=== PATIENT | female | born 1965 | race Caucasian/White ===

== ENCOUNTER → 2017-06-09 | Outpatient (CLI) | payer BC ==
--- NOTE | 2017-06-09 07:28 | MR ---
EXAMINATION TYPE: MR brain wo con DATE OF EXAM: 06/09/2017 COMPARISON: NONE HISTORY: Headaches, family history of aneurysm CONTRAST: Performed utilizing 0 mL intravenous Gadavist gadolinium contrast. TECHNIQUE: Multiplanar, multiecho imaging on a 3.0 Madisyn magnet is performed through the brain. Stud y is performed within 24 hours of arrival to the hospital. The craniovertebral junction is normal. The pituitary is normal. Diffusion-weighted imaging is performed. No abnormal hyperintensity is present to suggest an acute i ntracranial infarct or acute ischemic change. No suspicious discrete abnormal signal areas are within the periventricular white matter. Pituitary s talk is midline. Anterior communicating artery is patent. Optic chiasm appears unremarkable Ventricles and sulci are appropriate for the patient age. Left vertebral artery appears dominant. Basilar artery is patent. Distal internal carotid arteries ar e patent. The left internal carotid artery may terminate in the left middle cerebral artery. The left anterior cerebral artery is poorly visualized and may be hypoplastic or absent. Middle cerebral gentry ry branches appear unremarkable. Consider MRA [place] of [place] for additional evaluation. Minimal mucosal thickening is within the right maxillary sinus. IMPRESSIONS: 1. No acute intracranial changes. 2. The left A1 segment appears hypoplastic or absent. No obvious aneurysm is identified. MRA l[place] o f [place] can be performed for closer evaluation for aneurysms.
== END | disposition home or self-care (01) ==
LOC: RADMRIMAIN 06:07
PROVIDERS: ATTEND Family Medicine
DX: G44.85 Primary stabbing headache (principal)
CPT/HCPCS: 70551

== ENCOUNTER → 2020-05-22 | Outpatient (CLI) | payer BC ==
--- NOTE | 2020-05-22 19:50 | MR ---
"EXAMINATION TYPE: MR angio head wo con DATE OF EXAM: 05/22/2020 COMPARISON: Prior MRI brain June 09, 2017 HISTORY: Myelopathy, family hx aneurysm TECHNIQUE: Time of flight images focusing on the [place] were performed without contrast.. 2-D and 3-D postprocessing imaging is performed on independent workstation. FINDINGS: There is hypoplastic or occluded distal right vertebral artery. Left vertebral artery fills basilar artery. Patent left posterior communicating artery continuing as left posterior cerebral art corey. Small caliber but patent right posterior communicating artery image 102. Hypoplastic sac and [place] left posterior cerebral artery from basilar artery. No aneurysm. Anterior circulation shows eccentric 5.6 mm aneurysm at level of anterior communicating artery with s uspected some intraluminal clot. There is hypoplastic left A1 segment with filling of the left A2 seg ment due to patent anterior communicating artery. 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 A dvise endovascular and/or neurosurgical referral. A Yellow level critical message alert has been initiated for Martinez Alvarez DO via the [employer] 36 0 | Critical Results System on 05/22/2020 7:48 PM. This message alert has been sent to Martinez Alvarez DO via the preferences provided by the clinician for the receipt of Radiology Critical Findings. Ak ssage ID [id number]."
--- NOTE | 2020-05-22 20:01 | MR ---
MRI CERVICAL SPINE: CLINICAL HISTORY: Headaches, neck pain, bilateral upper extremity weakness. History of surgery. TECHNIQUE: Multiplanar, multisequence imaging of the cervical spine is performed without IV contrast. COMPARISON: None. FINDINGS: Coronal images show levoconvex scoliosis centered in the upper thoracic spine. Sagittal jose antonio ges of the cervical spine show the craniocervical junction to appear within normal limits. The cervi harry and upper thoracic spinal cord is normal in caliber and signal. Artifact from anterior fusion thaddeus te C3-C4 level noted. The vertebral body and intravertebral disk heights are normal. The bone marrow signal intensity is within normal limits. Axial images show C2-C3 level show some left-sided uncovertebral facet degenerative changes with perh aps mild left-sided neural foraminal narrowing. Axial images at C3-C4 level show artifact from surgical change with left-sided uncovertebral facet de generative changes causing mild to moderate narrowing. Axial images at C4-C5 level show artifact from surgical change, there is more prominent left-sided un covertebral facet degenerative change causing moderate to severe left-sided neural foraminal narrowin g. Tiny central disc protrusion minimally effaces the anterior thecal sac. Axial images at C5-C6 level shows broad-based posterior disc protrusion effacing anterior thecal sac and causing moderate right lung with mild left-sided neural foraminal narrowing as are some uncoverte bral facet spurring present. Axial images at C6-C7 level and C7-T1 levels are within normal limits. IMPRESSION: Scoliosis and multilevel degenerative changes in the cervical spine as detailed above. Po stsurgical change C3-C4 level noted.
== END | disposition home or self-care (01) ==
LOC: RADMRIMAIN 18:54
PROVIDERS: ATTEND Psychiatry & Neurology Neurology
DX: M47.12 Other spondylosis with myelopathy, cervical region (principal); M41.82 Other forms of scoliosis, cervical region; I66.19 Occlusion and stenosis of unspecified anterior cerebral artery; Z82.3 Family history of stroke; Z82.49 Family history of ischemic heart disease and other diseases of the circulatory system; Z98.1 Arthrodesis status
CPT/HCPCS: 70544; 72141

== ENCOUNTER → 2021-07-17 | Outpatient (CLI) | payer BC ==
--- NOTE | 2021-07-17 23:00 | CT ---
EXAMINATION TYPE: CT heart w calcium score DATE OF EXAM: 07/17/2021 COMPARISON: None. HISTORY: Screening for cardiovascular disorder. 213.9 CT DLP: 67.2 mGycm Automated exposure control for dose reduction was used. CT CALCIUM SCORING Coronary calcium is a marker for plaque (fatty deposits) in a blood vessel or atherosclerosis (harden ing of the arteries). The presence and amount of calcium detected in a coronary artery by the CT sca n, indicates the presence and amount of atherosclerotic plaque. These calcium deposits appear years before the development of heart disease symptoms such as chest pain and shortness of breath. A calcium score is computed for each of the coronary arteries based upon the volume and density of th e calcium deposits. This can be referred to as your calcified plaque burden. It does not correspond directly to the percentage of narrowing in the artery but does correlate with the severity of the un derlying coronary atherosclerosis. PROCEDURE TECHNIQUE - Prospective Gating was used. Slice thickness: 3mm. Density threshold (HU): 130, Pixel threshold: 3, Algorithm: discrete. RESULTS Region: LM Calcium Score ([place]): 0 Region: RCA Calcium Score ([place]): 0 Region: LAD Calcium Score ([place]): 0 Region: CX Calcium Score ([place]): 0 Region: PDA Calcium Score ([place]): 0 Total: Calcium Score ([place]): 0 Partial visualization of bilateral breast implants incidentally noted. IMPRESSION: Calcium Score: 0 Implication: No identifiable plaque. Risk of Coronary Artery Disease: Very low, generally less than 5%. CALCIUM SCORE IMPLICATION RISK OF C ORONARY ARTERY DISEASE 0 No identifiable plaque Very low, generally less than 5% 1-10 Minimal identifiable plaque Very unlikely, less than 10% 11-100 Definite, at least mild atherosclerotic plaque Mild or m inimal coronary narrowings likely 101-400 Definite, at least moderate atherosclerotic plaque Mild coronary ar jayne disease highly likely, significant narrowing possible 401 or Higher Extensive atherosclerotic plaque High lik elihood of at least one significant coronary narrowing
== END | disposition home or self-care (01) ==
LOC: RADCTMAIN 14:13
PROVIDERS: ATTEND Family Medicine
DX: Z13.6 Encounter for screening for cardiovascular disorders (principal)
CPT/HCPCS: 75571

== ENCOUNTER 2024-07-22 13:35 | Emergency (ER) | payer SELFPAY ==
[2024-07-22 13:54] VITALS: BP 108/68; PULSE 78; RESP 16; TEMP 97.6
--- NOTE | 2024-07-22 15:33 | ED ---
General Adult HPI - General Chief complaint: Neuro Symptoms/Deficit Stated complaint: Weakness Time Seen by Provider: 07/22/24 15:19 Source: patient Mode of arrival: ambulatory Limitations: no limitations - History of Present Illness Initial comments: Patient is a 59 y/o female presenting for syncopal episodes. Hx limited as patient unwilling to provide much hx beyond 3 recent syncopal episodes, sent in by her PCP. Patient frustrated as she has spent ~ 1.5 hours waiting to see a provider so would like to be discharged. - Related Data Home Medications Medication Instructions Recorded Confirmed Cyclobenzaprine [Flexeril] 10 mg PO HS MDD pain 03/27/16 03/29/16 Levothyroxine Sodium [Synthroid] 50 mcg PO DAILY 03/27/16 03/29/16 Allergies Allergy/AdvReac Type Severity Reaction Status Date / Time No Known Allergies Allergy Verified 03/29/16 11:56 Review of Systems ROS Statement: Those systems with pertinent positive or pertinent negative responses have been documented in the HPI. Limitations: ROS unobtainable due to patients medical condition (pt refused to provide further hx) Past Medical History Past Medical History: GERD/Reflux, Thyroid Disorder Additional Past Medical History / Comment(s): migraines, History of Any Multi-Drug Resistant Organisms: None Reported Past Surgical History: Breast Surgery, Orthopedic Surgery, Tubal Ligation Additional Past Surgical History / Comment(s): neck fusion, breast augmentation Past Anesthesia/Blood Transfusion Reactions: Motion Sickness Past Psychological History: No Psychological Hx Reported Past Alcohol Use History: Occasional Past Drug Use History: None Reported - Past Family History Mother Family Medical History: No Reported History Brother(s) Additional Family Medical History / Comment(s): aortic aneurysm General Exam - General Exam Comments Initial Comments: Visual Physical Exam Vital signs reviewed General: Well-appearing, nontoxic, no acute distress. Head: Normocephalic, atraumatic Eyes: PERRLA, EOMI ENT: Airway patent Chest: Nonlabored breathing Skin: No visual rash, normal skin tone Neuro: Alert and oriented 3 Musculoskeletal: No gross abnormalities Limitations: no limitations Course Vital Signs 07/22/24 07/22/24 13:52 15:24 Temperature 97.6 F Pulse Rate 78 Respiratory 16 16 Rate Blood Pressure 108/68 O2 Sat by Pulse 98 Oximetry EKG Findings - EKG Comments: EKG Findings:: EKG interpretation, sinus rhythm, rate 71 bpm, WV interval 125 ms, QRS duration 92 ms, QT/QTc 387/409 ms, normal axis, no ST elevations or depressions, no delta waves, no Brugada pattern no arrhythmia Medical Decision Making - Medical Decision Making Was pt. sent in by a medical professional or institution (, PA, CREDIT INTERVIEWER, urgent care, hospital, or senior care...) When possible be specific @ -[No] Did you speak to anyone other than the patient for history (EMS, parent, family, police, friend...)? What history was obtained from this source @ -[No] Did you review nursing and triage notes (agree or disagree)? Why? @ -[I reviewed and agree with nursing and triage notes] Were old charts reviewed (outside hosp., previous admission, EMS record, old EKG, old radiological studies, urgent care reports/EKG's, senior care records)? Report findings @ -[No old charts were reviewed] Differential Diagnosis (chest pain, altered mental status, abdominal pain women, abdominal pain men, vaginal bleeding, weakness, fever, dyspnea, syncope, headache, dizziness, GI bleed, back pain, seizure, CVA, palpatations, mental health, musculoskeletal)? @Differential Syncope: Valvular disease, hypertrophic cardiomyopathy, pulmonary embolism, tamponade, tachycardia, bradycardia, PA, hypovolemia, hemorrhage, dissection, anemia, intracranial hemorrhage, seizure, hypoglycemia, carbon monoxide poisoning, this is not meant to be an all-inclusive list. EKG interpreted by me (3pts min.). EKG interpretation, sinus rhythm, rate 71 bpm, WV interval 125 ms, QRS duration 92 ms, QT/QTc 3 7/409 ms, normal axis, no ST elevations or depressions, no delta waves, no Brugada pattern no arrhythmiarays interpreted by me (1pt min.). @ -[None done] CT interpreted by me (1pt min.). @ -[None done] U/S interpreted by me (1pt. min.). @ -[None done] What testing was considered but not performed or refused? (CT, X-rays, U/S, labs)? Why? Considered chest x-ray, orthostatic vital signs, comprehensive labs however patient requested discharge What meds were considered but not given or refused? Why? @ -[None] Did you discuss the management of the patient with other professionals (professionals i.e. , PA, CREDIT INTERVIEWER, lab, RT, psych nurse, social contact worker, educational speech language clinician, te acher, grant officer, adult protective caseworker)? Give summary @ -[No] Was smoking cessation discussed for >3mins.? @ -[No] Was critical care preformed (if so, how long)? @ -[No] Were there social determinants of health that impacted care today? How? (Homelessness, low income, unemployed, alcoholism, drug addiction, transportation, low edu. Level, literacy, decrease access to med. care, penitentiary, rehab)? @ -[No] Was there de-escalation of care discussed even if they declined (Discuss DNR or withdrawal of care, Hospice)? @ -[No] What co-morbidities impacted this encounter? (DM, HTN, Smoking, COPD, CAD, Cancer, CVA, ARF, Chemo, Hep., AIDS, mental health diagnosis, sleep apnea, morbid obesity)? @ -[None] Was patient admitted / discharged? Hospital course, mention meds given and route, prescriptions, significant lab abnormalities, going to OR and other pertinent info. @ -Discharge is medical advice- patient is a 59-year-old female presenting for 3 syncopal episodes in the past week. Sent in by her PCP. On my way to patient's room I was informed patient requesting to leave AMA. On my assessment verbalized frustration that she been waiting in the emergency department for long period of time without seeing a provider. I asked her if I could obtain history from her, she provided breif HPI as noted above. I explained that I was very concerned for her symptoms, and asked if I could talk with her further and obtain further history however she politely declined, requesting discharge. I discussed with her that I was concerned about these episodes and that if left unaddressed and 2/2 serious condition she could potentially or suffer serious injury 2/2 to them. Patient verbalized understanding of this and continues to request to be discharged without further discussion or exam. Pt discharged AMA. Undiagnosed new problem with uncertain prognosis? @ Yes Drug Therapy requiring intensive monitoring for toxicity (Heparin, Nitro, Insulin, Cardizem)? @ -[No] Were any procedures done? @ -[No] Diagnosis/symptom? @ Syncope Acute, or Chronic, or Acute on Chronic? @acute Uncomplicated (without systemic symptoms) or Complicated (systemic symptoms)? @ complicated Side effects of treatment? @ -[No] Exacerbation, Progression, or Severe Exacerbation? @ -[No] Poses a threat to life or bodily function? How? (Chest pain, [place], PA, pneumonia, PE, COPD, DKA, ARF, appy, cholecystitis, CVA, Diverticulitis, Homicidal, Suicidal, threat to staff... and all critical care pts) @ Potentially Disposition Clinical Impression: Syncope Disposition: LEFT AGAINST MEDICAL ADVICE Condition: Undetermined Referrals: Charlie Isaac MD [Primary Care Provider] - 1-2 days
== END 2024-07-22 15:25 | disposition left against medical advice (07) ==
LOC: EC 13:35
DX: R55 Syncope and collapse (principal); Z53.29 Procedure and treatment not carried out because of patient's decision for other reasons
CPT/HCPCS: 93005; 99284